=== PATIENT | male | born 1965 | race Caucasian/White ===

== ENCOUNTER 2021-11-18 19:47 | Inpatient (IN) | payer SELFPAY ==
[2021-11-18] MEDS ORDERED: LACTATED RINGERS SOLUTION 1000 ML INFUS.BAG IV ONE ×3 (20:08→23:11)
[2021-11-18] MEDS ORDERED: ONDANSETRON 4 MG/2 ML VIAL IVPB ONE (20:08)
[2021-11-18] MEDS ORDERED: LORazepam 2 MG/ML SDV VIAL IVPUSH ONE ×2 (20:10→20:53)
[2021-11-18] MEDS ORDERED: ONDANSETRON 4 MG/2 ML VIAL ONE (20:24)
[2021-11-18] MEDS ORDERED: ACETAMINOPHEN 1000 MG/100 ML BAG IVPB ONE (20:43)
[2021-11-18] MEDS ORDERED: ACETAMINOPHEN INJECTION 100 ML IVPB ONE (21:04)
[2021-11-18] MEDS ORDERED: diazePAM CARPU-JECT 10 MG/2 ML DISP.SYRIN IVPUSH ONE (22:59)
[2021-11-18] MEDS ORDERED: diazePAM CARPU-JECT 10 MG/2 ML DISP.SYRIN ONE (23:04)
[2021-11-18 23:06] LABS: ARTERIAL BLOOD GAS BASE EXCESS -21.4 mmol/L (-2-2); ARTERIAL BLOOD GAS PO2 41.8 mmHg (80-100)
[2021-11-18 23:08] LABS: ARTERIAL BLOOD GAS pH 7.026 (7.350-7.450)
[2021-11-18 23:11] LABS: EPI CELLS 4 /uL (0-25.1); HYALINE CASTS 1 /uL (0-3.1); URINE APPEARANCE CLEAR; URINE BACTERIA 14 /uL (0-1359); URINE BILIRUBIN NEGATIVE (NEGATIVE); URINE COLOR YELLOW; URINE GLUCOSE (UA) NEGATIVE (NEGATIVE); URINE KETONE 3+ (NEGATIVE); URINE LEUK ESTERASE NEGATIVE (NEGATIVE); URINE NITRITE NEGATIVE (NEGATIVE); URINE PROTEIN 2+ (NEGATIVE); URINE RBC 7 /uL (0-23.9); URINE UROBILINOGEN 0.2 mg/dL (0.2-1.0); URINE WBC 2 /uL (0-25.8)
[2021-11-18] MEDS ORDERED: THIAMINE HCL 200 MG/2 ML VIAL IVPB ONE (23:12)
[2021-11-18] MEDS ORDERED: THIAMINE HCL 200 MG/2 ML VIAL ONE (23:19)
[2021-11-18 23:31] LABS: LACTIC ACID 21.6 mmol/L (0.4-2.0)
[2021-11-18] MEDS ORDERED: DEXTROSE 5%-LACTATED RINGERS 1,000 ML IV SCH (23:45)
[2021-11-19] MEDS ORDERED: diazePAM CARPU-JECT 10 MG/2 ML DISP.SYRIN IVPUSH ONE ×3 (00:22→02:43)
[2021-11-19] MEDS ORDERED: diazePAM CARPU-JECT 10 MG/2 ML DISP.SYRIN ONE ×2 (00:25→02:37)
[2021-11-19 02:31] LABS: CHLORIDE 103 mmol/L (98-107); SODIUM 133 mmol/L (136-145)
[2021-11-19 02:34] LABS: ANION GAP 16 MMOL/L (8-16); BLOOD UREA NITROGEN 7.2 mg/dL (7-18); CO2 14 mmol/L (21-32)
[2021-11-19 02:37] LABS: CREATININE 1.2 mg/dL (0.55-1.3)
[2021-11-19 02:57] LABS: LIPASE 78 U/L (73-393)
[2021-11-19] MEDS ORDERED: ONDANSETRON 4 MG/2 ML VIAL IVPUSH ONE (02:58)
[2021-11-19] MEDS ORDERED: MAG HYDROX/AL HYDROX/SIMETH 30 ML UNIT-DOSE CUP PO ONE (02:58)
[2021-11-19] MEDS ORDERED: FAMOTIDINE 20 MG/50 ML IVPB 20 MG/50 ML MG IVPB ONE (02:58)
[2021-11-19 02:59] LABS: ARTERIAL BLD GAS O2 SATURATION 96.6 % (95-98); ARTERIAL BLOOD GAS BASE EXCESS -7.5 mmol/L (-2-2); ARTERIAL BLOOD GAS PO2 87.8 mmHg (80-100); ARTERIAL BLOOD GAS pH 7.369 (7.350-7.450)
[2021-11-19 03:01] LABS: ALLENS TEST POSITIVE
[2021-11-19] MEDS ORDERED: ONDANSETRON 4 MG/2 ML VIAL ONE (03:03)
[2021-11-19] MEDS ORDERED: MAG HYDROX/AL HYDROX/SIMETH 30 ML UNIT-DOSE CUP ONE (03:03)
[2021-11-19] MEDS ORDERED: FAMOTIDINE 10 MG/ML VIAL IVPB ONE (03:04)
[2021-11-19] MEDS ORDERED: ACETAMINOPHEN 1000 MG/100 ML BAG IVPB ONE (03:45)
[2021-11-19 03:58] LABS: PHOSPHOROUS 1.4 mg/dL (2.5-4.9)
[2021-11-19 04:04] LABS: GLUCOSE,RANDOM 513 mg/dL (74-106)
[2021-11-19] MEDS: LACTATED RINGERS SOLUTION 1,000 ML/1,000 ML INFUS.BAG IV SCH (04:15)
[2021-11-19] MEDS ORDERED: MELATONIN 5 MG TABLETS PO ONE (04:20)
[2021-11-19 07:46] LABS: VENOUS BASE EXCESS -4.9 mmol/L (-2-2); VENOUS PCO2 36.8 mmHg (38-52); VENOUS PH 7.352 (7.310-7.410)
[2021-11-19 07:54] LABS: CHLORIDE 103 mmol/L (98-107); SODIUM 136 mmol/L (136-145)
[2021-11-19 07:58] LABS: ANION GAP 9 MMOL/L (8-16); BLOOD UREA NITROGEN 7.6 mg/dL (7-18); CO2 24 mmol/L (21-32); GLUCOSE,RANDOM 309 mg/dL (74-106); MAGNESIUM 1.5 mg/dL (1.8-2.4)
[2021-11-19 07:59] LABS: CALCIUM 8.2 mg/dL (8.5-10.1)
[2021-11-19 08:01] LABS: CREATININE 0.9 mg/dL (0.55-1.3); SGOT/AST 168 U/L (15-37); SGPT/ALT 134 U/L (13-61)
[2021-11-19 08:02] LABS: BILIRUBIN,TOTAL 0.8 mg/dL (0.2-1)
[2021-11-19 08:07] LABS: ALBUMIN 3.9 g/dl (3.4-5.0); ALK PHOS 97 U/L (45-117); PHOSPHOROUS 0.9 mg/dL (2.5-4.9); TOT PROT 6.6 g/dl (6.4-8.2)
[2021-11-19] MEDS ORDERED: LORazepam 1 MG TABLET PO PRN (08:07)
[2021-11-19 08:15] LABS: PROTHROMBIN TIME (PATIENT) 11.5 SEC (9.7-13.0)
[2021-11-19 08:18] LABS: ACTIVATED PTT 27.5 SECONDS (25.2-36.5)
[2021-11-19 08:43] LABS: HEMATOCRIT 41.2 % (35.4-49); HEMOGLOBIN 13.8 GM/dL (11.7-16.9); MCH 29.4 pg (25.7-33.7); MCHC 33.6 g/dl (32.0-35.9); MEAN PLT VOLUME 7.9 fl (7.5-11.1); PLATELET COUNT 123 10^3/uL (134-434); RBC 4.71 M/mm3 (4.00-5.60); RDW 16.1 % (11.9-15.9); WHITE BLOOD COUNT 5.1 K/mm3 (4.0-10.0)
[2021-11-19 08:49] LABS: MEAN CELL VOLUME 87.4 fl (80-96)
[2021-11-19] MEDS ORDERED: MAGNESIUM SULF 50% (8.12 MEQ/2 ML-1 GM VIAL) IVPB ONE (09:15)
[2021-11-19] MEDS ORDERED: SODIUM PHOSPHATE - 30 MM in SODIUM CHLORIDE 250 ML IVPB ONE (09:15)
[2021-11-19] MEDS ORDERED: ENOXAPARIN NA (PORCINE) 40 MG/0.4 ML DISP.SYRIN SQ SCH (10:00)
[2021-11-19] MEDS: diazePAM 5 MG TABLET PO SCH ×2 (10:40→16:23)
[2021-11-19] MEDS: MUPIROCIN 2% TOPICAL OINTMENT FOR DECOLONIZATION NS SCH ×2 (10:56→21:54)
[2021-11-19] MEDS ORDERED: ONDANSETRON *ODT* 4 MG TABLET SL ONE (11:39)
[2021-11-19] MEDS ORDERED: ONDANSETRON 4 MG/2 ML VIAL IVPB ONE (11:40)
[2021-11-19 17:02] VITALS: BMI 35.4
[2021-11-19 17:05] LABS: CALCIUM 8.6 mg/dL (8.5-10.1)
[2021-11-19 17:06] LABS: ALBUMIN 3.6 g/dl (3.4-5.0); BLOOD UREA NITROGEN 7.7 mg/dL (7-18)
[2021-11-19 17:09] LABS: CREATININE 0.7 mg/dL (0.55-1.3)
[2021-11-19 17:11] LABS: BILIRUBIN,TOTAL 0.6 mg/dL (0.2-1); TOT PROT 6.1 g/dl (6.4-8.2)
[2021-11-19] MEDS: diazePAM 5 MG TABLET PO PRN (21:42)
[2021-11-19] MEDS: NAPH,MB-DB/K PH,MBDB POWDER PACKET PO SCH (21:54)
[2021-11-19] MEDS: SERTRALINE HCL 50 MG TABLET (FP) PO SCH (21:59)
[2021-11-19] MEDS ORDERED: CHLORHEXIDINE GLUCONATE 4% CLEANSER FOR DECOLONIZATION TP SCH (22:00)
[2021-11-19] MEDS ORDERED: MELATONIN 5 MG TABLETS PO SCH (22:00)
[2021-11-20] MEDS: diazePAM 5 MG TABLET PO SCH ×5 (00:10→22:19)
[2021-11-20] MEDS: diazePAM 5 MG TABLET PO PRN ×2 (02:45→08:41)
[2021-11-20] MEDS: NAPH,MB-DB/K PH,MBDB POWDER PACKET PO SCH ×3 (06:33→21:16)
[2021-11-20] MEDS: LACTATED RINGERS SOLUTION 1,000 ML/1,000 ML INFUS.BAG IV SCH ×2 (06:37→09:59)
[2021-11-20 07:36] LABS: BASO % 0.4 % (0-2.0); LYMPH % 22.4 % (8-40); MCH 29.5 pg (25.7-33.7); MCHC 33.5 g/dl (32.0-35.9); MEAN CELL VOLUME 88.1 fl (80-96); MEAN PLT VOLUME 8.6 fl (7.5-11.1); MONO % 6.2 % (3.8-10.2); PLATELET COUNT 114 10^3/uL (134-434); RBC 4.76 M/mm3 (4.00-5.60); RDW 16.4 % (11.9-15.9); WHITE BLOOD COUNT 4.7 K/mm3 (4.0-10.0)
[2021-11-20 08:02] LABS: CALCIUM 9.1 mg/dL (8.5-10.1)
[2021-11-20 08:03] LABS: ALBUMIN 3.8 g/dl (3.4-5.0); BLOOD UREA NITROGEN 4.9 mg/dL (7-18); CREATININE 0.7 mg/dL (0.55-1.3); PHOSPHOROUS 2.4 mg/dL (2.5-4.9)
[2021-11-20 08:05] LABS: TOT PROT 6.5 g/dl (6.4-8.2)
[2021-11-20] MEDS: LOPERAMIDE HCL 2 MG CAPSULE PO PRN (09:59)
[2021-11-20] MEDS: SERTRALINE HCL 50 MG TABLET (FP) PO SCH (09:59)
[2021-11-20] MEDS: ENOXAPARIN NA (PORCINE) 40 MG/0.4 ML DISP.SYRIN SQ SCH (09:59)
[2021-11-20] MEDS ORDERED: MUPIROCIN 2% TOPICAL OINTMENT FOR DECOLONIZATION NS SCH (10:00)
[2021-11-20] MEDS: FOLIC ACID 1 MG TABLET (FP) PO SCH (13:24)
[2021-11-20] MEDS: THIAMINE HCL 100 MG TABLET (FP) PO SCH (13:25)
[2021-11-20] MEDS ORDERED: CHLORHEXIDINE GLUCONATE 4% CLEANSER FOR DECOLONIZATION TP SCH (22:00)
[2021-11-20] MEDS ORDERED: TRIMETHOBENZAMIDE HCL 300 MG CAPSULE PO ONE (23:07)
[2021-11-20] MEDS ORDERED: ONDANSETRON 4 MG/2 ML VIAL IVPUSH ONE (23:23)
[2021-11-21] MEDS: diazePAM 5 MG TABLET PO PRN ×2 (02:00→10:14)
[2021-11-21] MEDS: MELATONIN 5 MG TABLETS PO SCH (02:00)
[2021-11-21] MEDS: NAPH,MB-DB/K PH,MBDB POWDER PACKET PO SCH ×3 (05:15→21:32)
[2021-11-21] MEDS: diazePAM 5 MG TABLET PO SCH ×3 (05:15→21:31)
[2021-11-21] MEDS: LACTATED RINGERS SOLUTION 1,000 ML/1,000 ML INFUS.BAG IV SCH ×4 (05:16→21:32)
[2021-11-21] MEDS ORDERED: diazePAM 5 MG TABLET PO SCH (06:00)
[2021-11-21] MEDS: FOLIC ACID 1 MG TABLET (FP) PO SCH (10:10)
[2021-11-21] MEDS: SERTRALINE HCL 50 MG TABLET (FP) PO SCH (10:10)
[2021-11-21] MEDS: THIAMINE HCL 100 MG TABLET (FP) PO SCH (10:11)
[2021-11-21] MEDS: ENOXAPARIN NA (PORCINE) 40 MG/0.4 ML DISP.SYRIN SQ SCH (10:11)
[2021-11-21 10:24] LABS: BASO % 0.5 % (0-2.0); EOS % 1.1 % (0-4.5); HEMATOCRIT 47.7 % (35.4-49); HEMOGLOBIN 15.8 GM/dL (11.7-16.9); LYMPH % 23.5 % (8-40); MCH 29.4 pg (25.7-33.7); MCHC 33.2 g/dl (32.0-35.9); MEAN CELL VOLUME 88.6 fl (80-96); MEAN PLT VOLUME 8.8 fl (7.5-11.1); MONO % 6.3 % (3.8-10.2); NEUT % 68.6 % (42.8-82.8); PLATELET COUNT 130 10^3/uL (134-434); RBC 5.39 M/mm3 (4.00-5.60); RDW 16.5 % (11.9-15.9); WHITE BLOOD COUNT 4.4 K/mm3 (4.0-10.0)
[2021-11-21 10:32] LABS: ALBUMIN 4.3 g/dl (3.4-5.0); CALCIUM 9.5 mg/dL (8.5-10.1)
[2021-11-21 10:33] LABS: BLOOD UREA NITROGEN 7.4 mg/dL (7-18)
[2021-11-21 10:36] LABS: PHOSPHOROUS 3.7 mg/dL (2.5-4.9)
[2021-11-21 10:37] LABS: BILIRUBIN,TOTAL 1.2 mg/dL (0.2-1); CREATININE 0.7 mg/dL (0.55-1.3); TOT PROT 7.7 g/dl (6.4-8.2)
[2021-11-21] MEDS: LOPERAMIDE HCL 2 MG CAPSULE PO PRN (15:06)
[2021-11-21] MEDS ORDERED: FAMOTIDINE 20 MG/50 ML IVPB 20 MG/50 ML MG IVPB ONE (20:54)
[2021-11-22] MEDS: diazePAM 5 MG TABLET PO PRN (02:05)
[2021-11-22] MEDS: MELATONIN 5 MG TABLETS PO SCH (02:05)
[2021-11-22] MEDS: NAPH,MB-DB/K PH,MBDB POWDER PACKET PO SCH (05:47)
[2021-11-22] MEDS: diazePAM 5 MG TABLET PO SCH ×3 (05:48→18:03)
[2021-11-22] MEDS ORDERED: diazePAM 5 MG TABLET PO SCH (06:00)
[2021-11-22 09:10] LABS: BASO % 0.9 % (0-2.0); EOS % 2.4 % (0-4.5); HEMATOCRIT 41.5 % (35.4-49); HEMOGLOBIN 14.3 GM/dL (11.7-16.9); MCH 30.1 pg (25.7-33.7); MCHC 34.4 g/dl (32.0-35.9); MEAN CELL VOLUME 87.5 fl (80-96); MEAN PLT VOLUME 8.5 fl (7.5-11.1); MONO % 8.5 % (3.8-10.2); NEUT % 61.2 % (42.8-82.8); PLATELET COUNT 100 10^3/uL (134-434); RBC 4.74 M/mm3 (4.00-5.60); RDW 15.9 % (11.9-15.9); WHITE BLOOD COUNT 3.1 K/mm3 (4.0-10.0)
[2021-11-22] MEDS: FOLIC ACID 1 MG TABLET (FP) PO SCH (09:50)
[2021-11-22] MEDS: ENOXAPARIN NA (PORCINE) 40 MG/0.4 ML DISP.SYRIN SQ SCH (09:50)
[2021-11-22] MEDS: SERTRALINE HCL 50 MG TABLET (FP) PO SCH (09:50)
[2021-11-22] MEDS: THIAMINE HCL 100 MG TABLET (FP) PO SCH (09:50)
[2021-11-22 09:57] LABS: BLOOD UREA NITROGEN 8.9 mg/dL (7-18)
[2021-11-22 09:58] LABS: ALBUMIN 3.6 g/dl (3.4-5.0); CALCIUM 8.9 mg/dL (8.5-10.1); MAGNESIUM 1.8 mg/dL (1.8-2.4)
[2021-11-22 10:01] LABS: PHOSPHOROUS 4.7 mg/dL (2.5-4.9)
[2021-11-22 10:02] LABS: BILIRUBIN,TOTAL 0.8 mg/dL (0.2-1); TOT PROT 6.3 g/dl (6.4-8.2)
[2021-11-22 10:08] LABS: CREATININE 0.6 mg/dL (0.55-1.3)
[2021-11-22] MEDS: LACTATED RINGERS SOLUTION 1,000 ML/1,000 ML INFUS.BAG IV SCH ×2 (16:45→21:45)
[2021-11-23] MEDS: MELATONIN 5 MG TABLETS PO SCH ×2 (05:21→21:00)
[2021-11-23] MEDS ORDERED: diazePAM 5 MG TABLET PO ONE ×2 (06:00)
[2021-11-23] MEDS ORDERED: INSULIN (LEVEMIR) 100 UNITS/ML UNITS SQ ONE (06:52)
[2021-11-23 09:21] LABS: ALBUMIN 3.8 g/dl (3.4-5.0); BLOOD UREA NITROGEN 11.9 mg/dL (7-18); CALCIUM 9.1 mg/dL (8.5-10.1); MAGNESIUM 1.9 mg/dL (1.8-2.4); PHOSPHOROUS 4.6 mg/dL (2.5-4.9)
[2021-11-23 09:22] LABS: TOT PROT 6.6 g/dl (6.4-8.2)
[2021-11-23 09:23] LABS: BILIRUBIN,TOTAL 0.7 mg/dL (0.2-1)
[2021-11-23 09:24] LABS: CREATININE 0.6 mg/dL (0.55-1.3)
[2021-11-23] MEDS: FOLIC ACID 1 MG TABLET (FP) PO SCH (10:06)
[2021-11-23] MEDS: ENOXAPARIN NA (PORCINE) 40 MG/0.4 ML DISP.SYRIN SQ SCH (10:06)
[2021-11-23] MEDS: THIAMINE HCL 100 MG TABLET (FP) PO SCH (10:06)
[2021-11-23] MEDS: SERTRALINE HCL 50 MG TABLET (FP) PO SCH (10:07)
[2021-11-24 09:04] LABS: BASO % 0.9 % (0-2.0); EOS % 2.5 % (0-4.5); HEMATOCRIT 44.6 % (35.4-49); HEMOGLOBIN 15.3 GM/dL (11.7-16.9); LYMPH % 29.8 % (8-40); MCHC 34.2 g/dl (32.0-35.9); MEAN CELL VOLUME 87.8 fl (80-96); MEAN PLT VOLUME 8.9 fl (7.5-11.1); MONO % 18.1 % (3.8-10.2); NEUT % 48.7 % (42.8-82.8); PLATELET COUNT 153 10^3/uL (134-434); RBC 5.08 M/mm3 (4.00-5.60); RDW 15.7 % (11.9-15.9); WHITE BLOOD COUNT 4.1 K/mm3 (4.0-10.0)
[2021-11-24 10:01] LABS: CREATININE 0.6 mg/dL (0.55-1.3)
[2021-11-24 10:02] LABS: ALBUMIN 3.9 g/dl (3.4-5.0); BILIRUBIN,TOTAL 0.6 mg/dL (0.2-1)
[2021-11-24] MEDS: THIAMINE HCL 100 MG TABLET (FP) PO SCH (10:02)
[2021-11-24] MEDS: FOLIC ACID 1 MG TABLET (FP) PO SCH (10:02)
[2021-11-24] MEDS: SERTRALINE HCL 50 MG TABLET (FP) PO SCH (10:02)
[2021-11-24] MEDS: ENOXAPARIN NA (PORCINE) 40 MG/0.4 ML DISP.SYRIN SQ SCH (10:02)
[2021-11-24 10:03] LABS: BLOOD UREA NITROGEN 12.9 mg/dL (7-18)
[2021-11-24 10:04] LABS: CALCIUM 9.3 mg/dL (8.5-10.1)
[2021-11-24 15:33] VITALS: BP 116/81; PULSE 67; TEMP 98.8
== END 2021-11-24 18:22 | disposition home or self-care (01) | DRG 775 ==
LOC: JER 19:47 → JERBED 11-19 02:43 → JICU 11-19 03:31 → J8W 11-20 09:38
PROVIDERS: ADMIT Internal Medicine Pulmonary Disease; ATTEND Internal Medicine
DX: F10.239 Alcohol dependence with withdrawal, unspecified (principal); R56.9 Unspecified convulsions; R74.01 Elevation of levels of liver transaminase levels; E87.2 Acidosis; F10.280 Alcohol dependence with alcohol-induced anxiety disorder; F10.282 Alcohol dependence with alcohol-induced sleep disorder; E83.39 Other disorders of phosphorus metabolism; E83.42 Hypomagnesemia; F32.A Depression, unspecified; R79.89 Other specified abnormal findings of blood chemistry; K76.0 Fatty (change of) liver, not elsewhere classified
CPT/HCPCS: 36415; 36600; 70450-TC; 71045-TC-FY; 72125-TC; 76705-TC; 80048; 80053; 80307; 81003; 82010; 82550; 82553; 82803; 82962; 83605; 83690; 83735; 83930; 84100; 84484; 85025; 85027; 85610; 85730; 86704; 86803; 87086; 87340; 87517; 93005; 93010; 97116-GP; 97161-GP; 99285-25; C9803-CS; U0003; U0005

== ENCOUNTER 2022-05-18 10:24 | Inpatient (IN) | payer OTHER ==
[2022-05-18 11:17] VITALS: BMI 30.1
[2022-05-18] MEDS ORDERED: BISMUTH SUBSALICYLATE 262 MG/15 ML BTL PO PRN (11:25)
[2022-05-18] MEDS ORDERED: MAG HYDROX/AL HYDROX/SIMETH -MYLANTA- ORAL SUSPENSION PO PRN (11:25)
[2022-05-18] MEDS ORDERED: NICOTINE 10 MG CARTRIDGE (INHALER) IH PRN (11:25)
[2022-05-18] MEDS ORDERED: IBUPROFEN 600 MG TABLET (FP) PO PRN (11:25)
[2022-05-18] MEDS ORDERED: POLYETHYLENE GLYCOL (HEALTHYLAX) 3350 17 GM PACKET PO PRN (11:25)
[2022-05-18] MEDS ORDERED: DICYCLOMINE HCL 10 MG CAPSULE PO PRN (11:25)
[2022-05-18] MEDS ORDERED: ACETAMINOPHEN 325 MG TABLET (FP) PO PRN ×2 (11:25)
[2022-05-18] MEDS ORDERED: NALOXONE HCL (KLOXXADO) 8 MG SPRAY NS PRN (11:25)
[2022-05-18] MEDS ORDERED: BENZOCAINE/MENTHOL (CHLORASEPTIC ) LOZENGE MM PRN (11:25)
[2022-05-18] MEDS ORDERED: MAGNESIUM HYDROX 2400MG/30ML ORAL SUSPENSION 30 ML CUP PO PRN (11:25)
[2022-05-18] MEDS ORDERED: IBUPROFEN 400 MG TABLET (FP) PO PRN (11:25)
[2022-05-18] MEDS ORDERED: ONDANSETRON *ODT* 4 MG TABLET ONE (11:40)
[2022-05-18] MEDS: chlordiazePOXIDE HCL 25 MG CAPSULE PO SCH ×3 (11:48→22:21)
[2022-05-18] MEDS: ONDANSETRON *ODT* 4 MG TABLET SL PRN (11:51)
[2022-05-18] MEDS: cloNIDine HCL 0.1 MG TABLET PO PRN ×2 (13:55→20:46)
[2022-05-18] MEDS ORDERED: chlordiazePOXIDE HCL 25 MG CAPSULE ONE (14:05)
[2022-05-18] MEDS ORDERED: LISINOPRIL 10 MG TABLET ONE (14:13)
[2022-05-18] MEDS ORDERED: chlordiazePOXIDE HCL 25 MG CAPSULE PO ONE (14:15)
[2022-05-18] MEDS: LISINOPRIL 10 MG TABLET PO SCH (14:43)
[2022-05-18] MEDS: PRENATAL VITAMINS W/ FOLIC ACID TABLET (FP) PO SCH (15:54)
[2022-05-18 17:33] LABS: HEMATOCRIT 48.2 % (35.4-49); HEMOGLOBIN 16.2 GM/dL (11.7-16.9); MCH 30.6 pg (25.7-33.7); MCHC 33.6 g/dl (32.0-35.9); MEAN CELL VOLUME 91.3 fl (80-96); MEAN PLT VOLUME 8.1 fl (7.5-11.1); PLATELET COUNT 117 10^3/uL (134-434); RBC 5.28 M/mm3 (4.00-5.60); RDW 16.3 % (11.9-15.9); WHITE BLOOD COUNT 2.7 K/mm3 (4.0-10.0)
[2022-05-18 17:42] LABS: CALCIUM 8.9 mg/dL (8.5-10.1)
[2022-05-18 17:43] LABS: ALBUMIN 4.3 g/dl (3.4-5.0); BLOOD UREA NITROGEN 3.5 mg/dL (7-18)
[2022-05-18 17:46] LABS: CREATININE 0.9 mg/dL (0.55-1.3)
[2022-05-18 17:47] LABS: BILIRUBIN,TOTAL 0.7 mg/dL (0.2-1); TOT PROT 7.5 g/dl (6.4-8.2)
[2022-05-18] MEDS: METHOCARBAMOL 500 MG TABLET PO PRN (20:46)
[2022-05-18] MEDS ORDERED: MELATONIN 5 MG TABLETS PO SCH (22:00)
[2022-05-18] MEDS: THIAMINE HCL 100 MG TABLET (FP) PO SCH (22:21)
[2022-05-19] MEDS: LOPERAMIDE HCL 2 MG CAPSULE PO PRN ×2 (03:24→08:49)
[2022-05-19] MEDS: chlordiazePOXIDE HCL 25 MG CAPSULE PO SCH (05:08)
[2022-05-19] MEDS: ONDANSETRON *ODT* 4 MG TABLET SL PRN (07:00)
[2022-05-19] MEDS: cloNIDine HCL 0.1 MG TABLET PO PRN (10:04)
[2022-05-19] MEDS: PRENATAL VITAMINS W/ FOLIC ACID TABLET (FP) PO SCH (10:04)
[2022-05-19] MEDS: LISINOPRIL 10 MG TABLET PO SCH (10:04)
[2022-05-19] MEDS: METHOCARBAMOL 500 MG TABLET PO PRN (10:04)
[2022-05-19] MEDS: LORazepam 2 MG TABLET PO SCH ×3 (10:04→22:13)
[2022-05-19] MEDS: LORazepam 1 MG TABLET PO PRN (14:03)
[2022-05-19] MEDS: THIAMINE HCL 100 MG TABLET (FP) PO SCH (22:13)
[2022-05-19] MEDS: SUVOREXANT 10 MG TABLET PO PRN (22:16)
[2022-05-20] MEDS ORDERED: chlordiazePOXIDE HCL 25 MG CAPSULE PO SCH (05:00)
[2022-05-20] MEDS: LORazepam 2 MG TABLET PO SCH ×4 (05:18→22:29)
[2022-05-20] MEDS: cloNIDine HCL 0.1 MG TABLET PO PRN (05:20)
[2022-05-20] MEDS: METHOCARBAMOL 500 MG TABLET PO PRN (10:09)
[2022-05-20] MEDS: PRENATAL VITAMINS W/ FOLIC ACID TABLET (FP) PO SCH (10:09)
[2022-05-20] MEDS: LISINOPRIL 10 MG TABLET PO SCH (10:10)
[2022-05-20 10:49] LABS: SGOT/AST 108 U/L (15-37); SGPT/ALT 85 U/L (13-61)
[2022-05-20 10:52] LABS: ALK PHOS 114 U/L (45-117)
[2022-05-20] MEDS: LORazepam 1 MG TABLET PO PRN (14:11)
[2022-05-20] MEDS: THIAMINE HCL 100 MG TABLET (FP) PO SCH (22:29)
[2022-05-20] MEDS: SUVOREXANT 10 MG TABLET PO PRN (22:30)
[2022-05-21] MEDS ORDERED: chlordiazePOXIDE HCL 10 MG CAPSULE PO SCH (05:00)
[2022-05-21] MEDS: LORazepam 1 MG TABLET PO SCH ×4 (05:30→22:28)
[2022-05-21] MEDS: PRENATAL VITAMINS W/ FOLIC ACID TABLET (FP) PO SCH (10:05)
[2022-05-21] MEDS: METHOCARBAMOL 500 MG TABLET PO PRN (10:06)
[2022-05-21] MEDS: LISINOPRIL 10 MG TABLET PO SCH (10:06)
[2022-05-21] MEDS: LORazepam 1 MG TABLET PO PRN (14:09)
[2022-05-21] MEDS: THIAMINE HCL 100 MG TABLET (FP) PO SCH (22:29)
[2022-05-21] MEDS: SUVOREXANT 10 MG TABLET PO PRN (22:32)
[2022-05-22] MEDS ORDERED: LORazepam 0.5 MG TABLET PO PRN
[2022-05-22] MEDS ORDERED: chlordiazePOXIDE HCL 10 MG CAPSULE PO SCH (05:00)
[2022-05-22] MEDS: LORazepam 0.5 MG TABLET PO SCH ×4 (05:33→22:25)
[2022-05-22] MEDS: LISINOPRIL 10 MG TABLET PO SCH (10:25)
[2022-05-22] MEDS: PRENATAL VITAMINS W/ FOLIC ACID TABLET (FP) PO SCH (10:25)
[2022-05-22] MEDS: METHOCARBAMOL 500 MG TABLET PO PRN (10:25)
[2022-05-22] MEDS ORDERED: LORazepam 1 MG TABLET PO ONE (15:00)
[2022-05-22] MEDS: SUVOREXANT 10 MG TABLET PO PRN (21:49)
[2022-05-22] MEDS: THIAMINE HCL 100 MG TABLET (FP) PO SCH (22:25)
[2022-05-23] MEDS ORDERED: LORazepam 0.5 MG TABLET PO ONE (05:00)
[2022-05-23] MEDS ORDERED: chlordiazePOXIDE HCL 10 MG CAPSULE PO ONE (05:00)
[2022-05-23] MEDS: LISINOPRIL 10 MG TABLET PO SCH (09:27)
[2022-05-23] MEDS: PRENATAL VITAMINS W/ FOLIC ACID TABLET (FP) PO SCH (09:27)
[2022-05-23] MEDS: METHOCARBAMOL 500 MG TABLET PO PRN (09:28)
[2022-05-23 14:05] VITALS: RESP 18
[2022-05-23] MEDS: LORazepam 0.5 MG TABLET PO PRN ×2 (17:25→23:48)
[2022-05-23] MEDS ORDERED: cloNIDine HCL 0.1 MG TABLET PO ONE ×2 (18:09)
[2022-05-23] MEDS: THIAMINE HCL 100 MG TABLET (FP) PO SCH (22:31)
[2022-05-23] MEDS ORDERED: SUVOREXANT 5 MG TABLET PO PRN (22:34)
[2022-05-24] MEDS ORDERED: LORazepam 0.5 MG TABLET PO ONE (05:00)
[2022-05-24 06:30] VITALS: BP 156/97; PULSE 68; TEMP 96.9
== END 2022-05-24 09:20 | disposition home or self-care (01) | DRG 775 ==
LOC: YASAS 10:24 → Y6N 13:16
PROVIDERS: ADMIT Allergy & Immunology; ATTEND Surgery
PROC: HZ2ZZZZ Detoxification Services for Substance Abuse Treatment (ICD-10-PCS; principal; 2022-05-18)
DX: F10.230 Alcohol dependence with withdrawal, uncomplicated (principal); F12.20 Cannabis dependence, uncomplicated; F10.280 Alcohol dependence with alcohol-induced anxiety disorder; F10.282 Alcohol dependence with alcohol-induced sleep disorder; F32.A Depression, unspecified; G47.00 Insomnia, unspecified; K70.10 Alcoholic hepatitis without ascites; R74.8 Abnormal levels of other serum enzymes; Z56.0 Unemployment, unspecified; Z86.69 Personal history of other diseases of the nervous system and sense organs
CPT/HCPCS: 36415; 80053; 84075; 84450; 84460; 85027; 86780; 87811; C9803-CS; Q0162; U0003; U0005